=== PATIENT | female | born 1950 | race Caucasian/White ===

== ENCOUNTER 2017-04-22 23:32 | Emergency (ER) | payer MEDICARE | END 2017-04-23 02:23 | disposition home or self-care (01) | LOC: ER 23:32 | DX: S16.1XXA Strain of muscle, fascia and tendon at neck level, initial encounter (principal); M47.22 Other spondylosis with radiculopathy, cervical region; E03.9 Hypothyroidism, unspecified; J45.909 Unspecified asthma, uncomplicated; F41.9 Anxiety disorder, unspecified; Z90.49 Acquired absence of other specified parts of digestive tract; Z98.890 Other specified postprocedural states; Z88.0 Allergy status to penicillin; Z88.8 Allergy status to other drugs, medicaments and biological substances; Z79.899 Other long term (current) drug therapy; X50.0XXA Overexertion from strenuous movement or load, initial encounter; Y92.513 Shop (commercial) as the place of occurrence of the external cause | CPT/HCPCS: 96372; J2270; J2550 ==